=== PATIENT | male | born 2000 | race African-American/Black ===

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

== ENCOUNTER 2020-02-26 12:24 | Emergency (ER) | payer BC ==
[~2020-02-26] VITALS: Ht 182.9 cm; Wt 227.2 kg
[~2020-02-26 12:24] MED LIST changes: +ASPI325T8 PO; +OXYC1TAB15 PO; +POLY17PO28 PO
[2020-02-26] MEDS ORDERED: ONDANSETRON PF 4 MG/2 ML VIAL. IV ONE (13:45)
[2020-02-26] MEDS ORDERED: IV NORMAL SALINE 1000ML BAG 1,000 ML IV ONE (13:45)
[2020-02-26] MEDS ORDERED: fentaNYL PF VIAL 100 MCG/2 ML VIAL IV ONE (13:45)
[2020-02-26 13:48] LABS: BASO # 0.1 x10^3/uL (0.0-0.2); BASO % 1 % (0-3); EOS % 0 % (0-3); HEMATOCRIT 40.2 % (39.0-53.0); HEMOGLOBIN 13.3 g/dL (13.0-17.5); LYMPH # 0.9 x10^3/uL (1.0-4.8); LYMPH % 8 % (24-48); MEAN CORPUSCULAR HEMOGLOBIN 28 pg (25-35); MEAN CORPUSCULAR HGB CONC 33 g/dL (31-37); MEAN CORPUSCULAR VOLUME 85 fL (79-100); MONO # 0.5 x10^3/uL (0.0-1.1); MONO % 4 % (0-9); NEUT # 9.7 x10^3/uL (1.8-7.7); NEUT % 87 % (31-73); PLATELET COUNT 242 x10^3/uL (140-400); RED BLOOD COUNT 4.75 x10^6/uL (4.30-5.70); RED CELL DISTRIBUTION WIDTH 14.2 % (11.5-14.5); WHITE BLOOD COUNT 11.2 x10^3/uL (4.0-11.0)
[2020-02-26 13:49] LABS: BILIRUBIN,URINE NEGATIVE (NEG); CLARITY,URINE CLOUDY; COLOR,URINE AMBER; NITRITE,URINE NEGATIVE (NEG); PROTEIN,URINE 100 mg/dL (NEG-TRACE)
[2020-02-26 14:02] LABS: CALCIUM 9.3 mg/dL (8.5-10.1); CREATININE 1.1 mg/dL (0.7-1.3); GFR 86.2; POTASSIUM 4.3 mmol/L (3.5-5.1)
[2020-02-26 14:08] LABS: ALBUMIN 3.8 g/dL (3.4-5.0); ALBUMIN/GLOBULIN RATIO 1.1 (1.0-1.7); TOTAL BILIRUBIN 0.3 mg/dL (0.2-1.0); TOTAL PROTEIN 7.2 g/dL (6.4-8.2)
[2020-02-26] MEDS ORDERED: IOHEXOL 300 MG/ML 100ML VIAL. IV ONE (14:15)
[2020-02-26 14:23] LABS: BACTERIA,URINE FEW /HPF (0-FEW); RBC,URINE TNTC /HPF (0-2); WBC,URINE OCC /HPF (0-4)
--- NOTE | 2020-02-26 15:05 | RAD ---
INDICATION: Reason: RLQ abd pain, n/v x1 week / Spl. Instructions: OMNI 300 INJ 75 MLS / History: . COMPARISON: None. TECHNIQUE: Axial CT images obtained through the abdomen and pelvis with contrast. One or more of the following individualized dose reduction techniques were utilized for this examination: 1. Automated exposure control; 2. Adjustment of the mA and/or kV according to patient size; 3. Use of iterative reconstruction technique. FINDINGS: Abdominal aorta is not aneurysmal. There are some enlarged lymph nodes within the bilateral groin. For example on the right measuring up to about 15 mm short axis. No intrahepatic bile duct dilation. Gallbladder is partially contracted. No peripancreatic fluid collection. Spleen is enlarged. Questionable mild haziness to the fat adjacent to the pancreas. No left-sided hydronephrosis. Urinary bladder is not dilated. Mild right-sided hydronephrosis 2 mm high density structure is suspected at the right mid ureter. There is some artifact that limits evaluation. No periappendiceal inflammatory changes. No dilated loops of bowel to suggest obstruction. Degenerative changes the spine which are more than typically seen for the patient's age. IMPRESSION: * No evidence of appendicitis or bowel obstruction. * There is some mild right-sided hydronephrosis and perinephric edema. There is a subtle 2 mm high density structure within the right mid ureter which could be from a small stone or high density debris. * Splenomegaly. * Mild indistinctness adjacent to the pancreas. This could be artifactual in nature but would correlate with symptoms and lab markers to ensure that there is no superimposed mild pancreatitis. * Lymphadenopathy in the bilateral groin of unknown etiology. Electronically signed by: Elie Winchester MD (02/26/2020 3:02 PM) [id number]
[2020-02-26] MEDS ORDERED: TAMS0.4C97 PO (16:16)
[2020-02-26] MEDS ORDERED: ONDA-84 PO (16:16)
[2020-02-26] MEDS ORDERED: HYDR-2761 PO (16:16)
--- NOTE | 2020-02-26 16:16 | ED.ADGEN ---
Past Medical History Past Medical History: Other Additional Past Medical Histor: Morbid Obesity Past Surgical History: Tonsillectomy, Other Additional Past Surgical Histo: Right ankle Smoking Status: Never Smoker Alcohol Use: Rarely Drug Use: None General Adult EDM: Chief Complaint: ABDOMINAL PAIN HPI: HPI: Patient is a 19 year old [f__sex] who presents with [] Review of Systems: Review of Systems: Constitutional: Denies fever or chills. [] Eyes: Denies change in visual acuity. [] HENT: Denies nasal congestion or sore throat. [] Respiratory: Denies cough or shortness of breath. [] Cardiovascular: Denies chest pain or edema. [] GI: Denies abdominal pain, nausea, vomiting, bloody stools or diarrhea. [] : Denies dysuria. [] Musculoskeletal: Denies back pain or joint pain. [] Integument: Denies rash. [] Neurologic: Denies headache, focal weakness or sensory changes. [] Endocrine: Denies polyuria or polydipsia. [] Lymphatic: Denies swollen glands. [] Psychiatric: Denies depression or anxiety. [] Current Medications: Current Medications Medications (Trade) Dose Ordered Sig/Senia Start Time Stop Time Status Last Admin Dose Admin Fentanyl Citrate (Fentanyl 2ml Vial) 50 mcg 1X ONCE 02/26/20 13:45 02/26/20 13:48 DC Iohexol (Omnipaque 300 Mg/ml) 75 ml 1X ONCE 02/26/20 14:15 02/26/20 14:17 DC 02/26/20 14:37 75 ML Ondansetron HCl (Zofran) 4 mg 1X ONCE 02/26/20 13:45 02/26/20 13:48 DC Sodium Chloride 1,000 ml @ 1,000 mls/hr 1X ONCE 02/26/20 13:45 02/26/20 14:44 DC 02/26/20 14:54 1,000 MLS/HR Allergies: Allergies: Allergies Coded Allergies Type Severity Reaction Last Updated Verified No Known Drug Allergies 09/12/19 No Physical Exam: PE: Constitutional: Well developed, well nourished, no acute distress, non-toxic appearance. [] HENT: Normocephalic, atraumatic, bilateral external ears normal, oropharynx moist, no oral exudates, nose normal. [] Eyes: PERRLA, EOMI, conjunctiva normal, no discharge. [] Neck: Normal range of motion, no tenderness, supple, no stridor. [] Cardiovascular:Heart rate regular rhythm, no murmur [] Lungs & Thorax: Bilateral breath sounds clear to auscultation [] Abdomen: Bowel sounds normal, soft, no tenderness, no masses, no pulsatile masses. [] Skin: Warm, dry, no erythema, no rash. [] Back: No tenderness, no CVA tenderness. [] Extremities: No tenderness, no cyanosis, no clubbing, ROM intact, no edema. [] Neurologic: Alert and oriented X 3, normal motor function, normal sensory function, no focal deficits noted. [] Psychologic: Affect normal, judgement normal, mood normal. [] Current Patient Data: Labs: Laboratory Tests Test 02/26/20 13:14 02/26/20 13:30 Urine Collection Type Unknown Urine Color Mari Urine Clarity Cloudy Urine pH 6.0 (<5.0-8.0) Urine Specific [place] 1.025 (1.000-1.030) Urine Protein 100 mg/dL (NEG-TRACE) Urine Glucose (UA) Negative mg/dL (NEG) Urine Ketones (Stick) Negative mg/dL (NEG) Urine Blood Large (NEG) Urine Nitrite Negative (NEG) Urine Bilirubin Negative (NEG) Urine Urobilinogen Dipstick 1.0 mg/dL (0.2 mg/dL) Urine Leukocyte Esterase Trace (NEG) Urine RBC Tntc /HPF (0-2) Urine WBC Occ /HPF (0-4) Urine Bacteria Few /HPF (0-FEW) Urine Mucus Slight /LPF White Blood Count 11.2 x10^3/uL (4.0-11.0) H Red Blood Count 4.75 x10^6/uL (4.30-5.70) Hemoglobin 13.3 g/dL (13.0-17.5) Hematocrit 40.2 % (39.0-53.0) Mean Corpuscular Volume 85 fL (79-100) Mean Corpuscular Hemoglobin 28 pg (25-35) Mean Corpuscular Hemoglobin Concent 33 g/dL (31-37) Red Cell Distribution Width 14.2 % (11.5-14.5) Platelet Count 242 x10^3/uL (140-400) Neutrophils (%) (Auto) 87 % (31-73) H Lymphocytes (%) (Auto) 8 % (24-48) L Monocytes (%) (Auto) 4 % (0-9) Eosinophils (%) (Auto) 0 % (0-3) Basophils (%) (Auto) 1 % (0-3) Neutrophils # (Auto) 9.7 x10^3/uL (1.8-7.7) H Lymphocytes # (Auto) 0.9 x10^3/uL (1.0-4.8) L Monocytes # (Auto) 0.5 x10^3/uL (0.0-1.1) Eosinophils # (Auto) 0.0 x10^3/uL (0.0-0.7) Basophils # (Auto) 0.1 x10^3/uL (0.0-0.2) Platelet Estimate Pending Sodium Level 140 mmol/L (136-145) Potassium Level 4.3 mmol/L (3.5-5.1) Chloride Level 104 mmol/L (98-107) Carbon Dioxide Level 25 mmol/L (21-32) Anion Gap 11 (6-14) Blood Urea Nitrogen 11 mg/dL (8-26) Creatinine 1.1 mg/dL (0.7-1.3) Estimated GFR (Cockcroft-Gault) 86.2 BUN/Creatinine Ratio 10 (6-20) Glucose Level 137 mg/dL (70-99) H Calcium Level 9.3 mg/dL (8.5-10.1) Magnesium Level 2.0 mg/dL (1.8-2.4) Total Bilirubin 0.3 mg/dL (0.2-1.0) Aspartate Amino Transferase (AST) 22 U/L (15-37) Alanine Aminotransferase (ALT) 44 U/L (16-63) Alkaline Phosphatase 90 U/L (46-116) Total Protein 7.2 g/dL (6.4-8.2) Albumin 3.8 g/dL (3.4-5.0) Albumin/Globulin Ratio 1.1 (1.0-1.7) Lipase 40 U/L (73-393) L Laboratory Tests 02/26/20 13:30 Laboratory Tests 02/26/20 13:30 Vital Signs: Vital Signs Date Time Temp Pulse Resp B/P (MAP) Pulse Ox O2 Delivery O2 Flow Rate FiO2 02/26/20 13:04 97.8 60 16 165/86 (112) 97 Room Air 97.8 EKG: EKG: [] Heart Score: Risk Factors: Risk Factors: DM, Current or recent (<one month) smoker, HTN, HLP, family history of CAD, obesity. Risk Scores: Score 0 - 3: 2.5% MACE over next 6 weeks - Discharge Home Score 4 - 6: 20.3% MACE over next 6 weeks - Admit for Clinical Observation Score 7 - 10: 72.7% MACE over next 6 weeks - Early Invasive Strategies Radiology/Procedures: Radiology/Procedures: [] Course & Med Decision Making: Course & Med Decision Making Pertinent Labs and Imaging studies reviewed. (See chart for details) [] Dragon Disclaimer: Dragon Disclaimer: This electronic medical record was generated, in whole or in part, using a voice recognition dictation system. Departure Departure Impression: Primary Impression: Kidney stone on right side Disposition: 01 DC HOME SELF CARE/HOMELESS Condition: STABLE Referrals: NO PCP (PCP) Patient Instructions: Diet for Kidney Stones, Kidney Stones, [id number] Additional Instructions: Fill the prescriptions and use them as directed. Use the provided strainer to strain all your urine. Follow-up with your primary care doctor next week, recommend follow-up with a urologist for further evaluation and treatment of kidney stones. Unfortunately we do not have urology services at [facility]. Return to the ER if your symptoms worsen or fever develops. Scripts Hydrocodone Bit/Acetaminophen (HYDROCODONE-APAP 5-325 ) 1 Tab Tablet 1 TAB PO PRN Q6HRS PRN for PAIN for 3 Days, #10 TAB 0 Refills Prov: YESI WATSON POWER LINE INSTALLER 02/26/20 Ondansetron Hcl (ONDANSETRON HCL) 4 Mg Tablet 1 TAB PO PRN Q6HRS PRN for NAUSEA/VOMITING for 3 Days, #10 TAB 0 Refills Prov: YESI WATSON POWER LINE INSTALLER 02/26/20 Tamsulosin Hcl (FLOMAX) 0.4 Mg Cap.er.24h 1 CAP PO DAILY for 14 Days, #14 CAP 0 Refills Prov: YESI WATSON POWER LINE INSTALLER 02/26/20 YESI WATSON POWER LINE INSTALLER Feb 26, 2020 16:16
[2020-02-26 16:29] VITALS: BP 124/58
[2020-02-26 16:53] LABS: % LYMPHS 10 % (24-48); % MONOS 3 % (0-10); % SEGS 87 % (35-66); PLT ESTIMATE ADEQUATE (ADEQUATE); TOXIC VACUOLATION SLIGHT
== END 2020-02-26 17:10 | disposition home or self-care (01) ==
LOC: ER 12:24
DX: N20.0 Calculus of kidney (principal); R10.31 Right lower quadrant pain; E66.01 Morbid (severe) obesity due to excess calories; Z68.44 Body mass index [BMI] 60.0-69.9, adult; Z90.89 Acquired absence of other organs; Z98.890 Other specified postprocedural states
CPT/HCPCS: 36415; 74177; 80053; 81001; 83690; 83735; 85007; 85025; 87086; 96361; 96374; 96375; 99285; J2405; J3010; J7030; Q9967; 87077

== ENCOUNTER → 2020-04-05 | Outpatient (CLI) | payer BC ==
[~2020-04-05] MED LIST changes: +HYDR-2761 PO; +ONDA-84 PO; +TAMS0.4C97 PO
== END ==
LOC: LAB 10:40
PROVIDERS: ATTEND Orthopaedic Surgery
DX: Z01.812 Encounter for preprocedural laboratory examination (principal); Z20.828 Contact with and (suspected) exposure to other viral communicable diseases
CPT/HCPCS: U0003

== ENCOUNTER 2020-04-08 09:06 | Day surgery (SDC) | payer BC ==
[~2020-04-08] VITALS: Ht 175.3 cm; Wt 225.0 kg
[~2020-04-08 09:06] MED LIST changes: +BUPIVACAINE-EPI 0.25%-1:200000 MPF 30 ML VIAL. INJ ONE; +IV RINGERS,LACTATED 1000ML 1,000 ML IV SCH; +LIDOCAINE 1% PF 2 ML VIAL. ID PRN; +ONDANSETRON PF 4 MG/2 ML VIAL. IV PRN; +PROCHLORPERAZINE 10 MG/2 ML VIAL. IV PRN; +ceFAZolin SODIUM 3 GM in IV DEXTROSE 5% 100ML 100 ML IV PRN; +fentaNYL PF VIAL 100 MCG/2 ML VIAL IV PRN
[2020-04-08] MEDS ORDERED: LIDOCAINE 2% PF 5 ML VIAL. ONE (09:35)
[2020-04-08] MEDS ORDERED: ROCURONIUM 50 MG/5 ML VIAL. ONE (09:35)
[2020-04-08] MEDS ORDERED: PROPOFOL 10 MG/ML (20ML) VIAL. IV ONE (09:35)
[2020-04-08] MEDS ORDERED: ONDANSETRON PF 4 MG/2 ML VIAL. ONE (09:35)
[2020-04-08] MEDS ORDERED: SUCCINYLCHOLINE 200 MG/10 ML VIAL. ONE (09:35)
[2020-04-08] MEDS ORDERED: DEXAMETHASONE SOD PHOS 4 MG/ML VIAL ONE (09:35)
[2020-04-08] MEDS ORDERED: INSULIN LISPRO 100 UNIT/ML 3ML VIAL for OP,RR ONLY. SQ PRN (09:45)
[2020-04-08] MEDS ORDERED: MIDAZOLAM HCL/PF 2 MG/2 ML VIAL. ONE (10:20)
[2020-04-08] MEDS ORDERED: fentaNYL PF VIAL 100 MCG/2 ML VIAL ONE (11:27)
[2020-04-08] MEDS ORDERED: SEVOFLURANE 31 TO 60 MINUTES. IH ONE (11:45)
[2020-04-08] MEDS ORDERED: FAMOTIDINE 20 MG/2 ML VIAL ONE (11:45)
[2020-04-08] MEDS ORDERED: KETOROLAC 30 MG/ML VIAL. ONE (12:07)
[2020-04-08] MEDS ORDERED: SEVOFLURANE 61 TO 120 MINUTES. IH ONE (12:32)
[2020-04-08] MEDS ORDERED: MORPHINE SULFATE 2 MG/ML VIAL. ONE (13:01)
[2020-04-08] MEDS: MORPHINE SULFATE 2 MG/ML VIAL. IV PRN ×2 (13:05→13:15)
--- NOTE | 2020-04-08 13:05 | PDOC1 ---
History and Physical Date of Admission Date of Admission DATE: 04/08/20 TIME: 13:02 Identification/Chief Complaint Chief Complaint Painful right ankle hardware with mechanical complications Source Source: Chart review, Patient History of Present Illness History of Present Illness This 19-year-old man had an ankle fracture with syndesmosis repair several months ago. The medial malleolus fracture was repaired with K wires. It is time for the syndesmosis screws to be removed. These will cause mechanical complications and ankle problems if they are not removed and could break if they are not removed soon. The medial malleolus appears healed but the K wires are painful. I recommended removal of the syndesmosis screws and the K wires but re lieve the plate intact to help prevent refracture of the lateral malleolus. I spoke to the patient and his mother about the risks benefits and alternatives. Significant risk of refracture especially due to the patient's weight, and some risk of blood clots or infection, also with increased risk due to his weight. They stated understanding of the risks benefits and alternatives and desired to proceed. Past Surgical History Past Surgical History: Tonsillectomy Family History Family History: Cancer, Diabetes Family History: Other Current Medications Current Medications Current Medications Bupivacaine HCl/ Epinephrine Bitart (Sensorcaine-Epi 0.25%-1:513808 Mpf) 30 ml 1X ONCE INJ Last administered on 04/08/20at 11:42; Start 04/08/20 at 08:00; Stop 04/08/20 at 08:01; Status DC Ondansetron HCl (Zofran) 4 mg PRN Q6HRS PRN IV NAUSEA/VOMITING; Start 04/08/20 at 07:00; Stop 04/09/20 at 06:59 Fentanyl Citrate (Fentanyl 2ml Vial) 25 mcg PRN Q5MIN PRN IV MILD PAIN 1-3; Start 04/08/20 at 07:00; Stop 04/09/20 at 06:59 Fentanyl Citrate (Fentanyl 2ml Vial) 50 mcg PRN Q5MIN PRN IV MODERATE TO SEVERE PAIN; Start 04/08/20 at 07:00; Stop 04/09/20 at 06:59 Morphine Sulfate (Morphine Sulfate) 1 mg PRN Q10MIN PRN IV SEVERE PAIN 7-10; Start 04/08/20 at 07:00; Stop 04/09/20 at 06:59 Ringer's Solution 1,000 ml @ 30 mls/hr Q24H IV Last administered on 04/08/20at 10:08; Start 04/08/20 at 07:00; Stop 04/08/20 at 18:59 Lidocaine HCl (Xylocaine-Mpf 1% 2ml Vial) 2 ml PRN 1X PRN ID PRIOR TO IV START; Start 04/08/20 at 07:00; Stop 04/09/20 at 06:59 Hydromorphone HCl (Dilaudid) 0.5 mg PRN Q10MIN PRN IV SEV PAIN, Second choice; Start 04/08/20 at 07:00; Stop 04/09/20 at 06:59 Prochlorperazine Edisylate (Compazine) 5 mg PACU PRN PRN IV NAUSEA, MRX1; Sta rt 04/08/20 at 07:00; Stop 04/09/20 at 06:59 Cefazolin Sodium 3 gm/Dextrose 100 ml @ 200 mls/hr 1X PREOP PRN IV PRIOR TO PROCEDURE Last administered on 04/08/20at 11:10; Start 04/08/20 at 06:00; Stop 04/08/20 at 15:00 Propofol (Diprivan) 200 mg STK-MED ONCE IV ; Start 04/08/20 at 09:35; Stop 04/08/20 at 09:36; Status DC Dexamethasone Sodium Phosphate (Decadron) 4 mg STK-MED ONCE .ROUTE ; Start 04/08/20 at 09:35; Stop 04/08/20 at 09:36; Status DC Lidocaine HCl (Lidocaine Pf 2% Vial) 5 ml STK-MED ONCE .ROUTE ; Start 04/08/20 at 09:35; Stop 04/08/20 at 09:36; Status DC Ondansetron HCl (Zofran) 4 mg STK-MED ONCE .ROUTE ; Start 04/08/20 at 09:35; Stop 04/08/20 at 09:36; Status DC Succinylcholine Chloride (Anectine) 200 mg STK-MED ONCE .ROUTE ; Start 04/08/20 at 09:35; Stop 04/08/20 at 09:36; Status DC Rocuronium Staley (Zemuron) 50 mg STK-MED ONCE .ROUTE ; Start 04/08/20 at 09:35; Stop 04/08/20 at 09:36; Status DC Insulin Human Lispro (HumaLOG VIAL for OP,RR ONLY) 0-10 units PRN Q1HR PRN SQ PER PROTOCOL; Start 04/08/20 at 09:45; Stop 04/09/20 at 09:44 Midazolam HCl (Versed) 2 mg STK-MED ONCE .ROUTE ; Start 04/08/20 at 10:20; Stop 04/08/20 at 10:21; Status DC Fentanyl Citrate (Fentanyl 2ml Vial) 100 mcg STK-MED ONCE .ROUTE ; Start 03/22 12/09 at 11:27; Stop 04/08/20 at 11:27; Status DC Famotidine (Pepcid Vial) 20 mg STK-MED ONCE .ROUTE ; Start 04/08/20 at 11:45; Stop 04/08/20 at 11:46; Status DC Sevoflurane (Ultane) 30 ml STK-MED ONCE IH ; Start 04/08/20 at 11:45; Stop 04/08/20 at 11:46; Status DC Ketorolac Tromethamine (Toradol 30mg Vial) 30 mg STK-MED ONCE .ROUTE ; Start 04/08/20 at 12:07; Stop 04/08/20 at 12:07; Status DC Sevoflurane (Ultane) 60 ml STK-MED ONCE IH ; Start 04/08/20 at 12:32; Stop 04/08/20 at 12:32; Status DC Active Scripts Active Reported No Known Medications Prior To Admisstion (Info) Each 1 Each N/A Allergies Allergies: Coded Allergies: No Known Drug Allergies (Unverified , 04/08/20) Physical Exam General: Alert, Cooperative HEENT: Atraumatic Heart: RRR Abdomen: Soft Extremities: Other (Well-healed ankle incisions. No evidence of infection. Tenderness over the medial malleolus where the s K wires are located. Slightly decreased ankle range of motion is consistent with rigid syndesmosis fixation.) Skin: No breakdown, No significant lesion, Other (Well-healed surgical scars.) Neuro: Sensation intact Psych/Mental Status: Mood NL Vitals Vitals Vital Signs Date Time Temp Pulse Resp B/P (MAP) Pulse Ox O2 Delivery O2 Flow Rate FiO2 04/08/20 09:50 97.6 87 18 139/85 96 Room Air 97.6 Labs Labs Laboratory Tests Test 04/08/20 10:01 Glucose (Fingerstick) 97 mg/dL (70-99) Laboratory Tests Test 04/08/20 10:01 Glucose (Fingerstick) 97 mg/dL (70-99) Images Images IMAGING REPORT Signed PATIENT: SRUTHI JOHNSTON MACCOUNT: [id number] : 2000 LOCATION: [facility] AGE: 19 SEX: M EXAM STATUS: PRE CLI ORD. PHYSICIAN: LAWANDA WEBSTER MD REASON: FU SURG RIGHT ANKLE PROCEDURE: ANKLE RIGHT 3V ANKLE RIGHT 3V 01/11/2020 12:00 AM INDICATION: Right ankle surgery COMPARISON: 12/14/2019 TECHNIQUE: 3 views of the right ankle are provided. FINDINGS/ IMPRESSION: 1. Ankle soft tissue swelling appears similar to prior examination. No subcutaneous gas or osseous erosion. 2. Lateral plate and screw fixation of the tibia and fibula noted. Hardware is intact. 3 K wires are identified within the medial malleolus. Tibial plafond and talar dome are intact. Ankle mortise is congruent. Electronically signed by: Sofia Oglesby MD (01/11/2020 3:23 PM) [id number] DICTATED and SIGNED BY: SOFIA OGLESBY MD DATE: 01/11/20 1523 VTE Prophylaxis Ordered VTE Prophylaxis Devices: Yes VTE Pharmacological Prophylaxi: Yes Assessment/Plan Assessment/Plan Painful ankle hardware. Mechanical complications retained hardware. He and I and his mother have discussed hardware removal and the risks benefits and alternatives. He is here today for elective surgery. Justifications for Admission Other Justification LAWANDA WEBSTER MD Apr 08, 2020 13:05
--- NOTE | 2020-04-08 13:07 | PDOC4 ---
Operative Note Operative Note Date of Procedure: April 08, 2020 Pre-Op Diagnosis: Pain due to internal orthopedic prosthetic devices, implants and grafts, initial encounter T84.84XA Other mechanical complication of internal fixation device of bone of right lower leg, initial encounter T84.196A Post-Op Diagnosis: same Procedure: CPT 21862 removal of implant deep (e.g., buried wire, pin, screw, nail, frida, or plate) right ankle Surgeon: Lawanda Cevallos MD Carton Machine Operator: Rosy JULIEN Anesthesia: General EBL: 50 mL Specimens Obtained: none Complications: none Drains: none Tourniquet: 56 minutes at 300 mm Hg Indications for Procedure: The patient is a 19 year old with mechanical complications of retained hardware of the right ankle. The patient and I discussed the risks, benefits and alternatives of surgery. I recommended hardware removal but I discussed the potential risks of refracture, infection, bleeding, blood clots, neurovascular injury, or other potential surgical or anesthetic complications. All of their questions were answered and they desired to proceed with surgery. Procedure in Detail: The patient was identified in the preoperative holding area. The correct right ankle was marked by me. The patient was taken to the operating room where general anesthetic was used. The patient was positioned on the operating table. Preoperative antibiotics were given intravenously. A timeout procedure was performed. A padded tourniquet was applied to the right calf. The limb was prepared in sterile fashion with chlorhexidine scrub, dry, and then ChloraPrep. Sterile drapes were applied. An incision was made with a scalpel, utilizing a prior scar, and over the hardware medially. Sharp dissection was used. Bovie electrocautery was used for dissection and hemostasis. Deep retractors were placed due to the abundant soft tissues. The K wires were located with use of the small C arm image intensifier and removed with a needle transfer driver. The medial malleolus fracture appears well- healed. Copious saline irrigation was used. The medial incision was closed with #1 Vicryl, 2-0 Vicryl, and pati. Bovie electrocautery was used for hemostasis. Local anesthetic with epinephrine was injected into the skin edges. The small C arm image intensifier was used to localize the syndesmosis screws. A portion of the lateral incision was reopened sharply. Bovie electrocautery was used for hemostasis. Deep retractors were placed. The screw heads were identified and the screws were removed without difficulty. Neither screw was broken. Copious saline irrigation was used. The incision was closed in layers with #1 Vicryl, #2-0 Vicryl and pati. My clinical physician assistant did the subcutaneous and skin closure. Local anesthetic with epinephrine was injected into the skin edges. Sterile dressing was applied. Needle and sponge counts were correct. There were no apparent complications. The tourniquet was released. The patient returned to the recovery in stable condition. LAWANDA CEVALLOS MD Apr 08, 2020 13:07
[2020-04-08] MEDS ORDERED: PROCHLORPERAZINE 10 MG/2 ML VIAL. ONE (13:17)
[2020-04-08] MEDS ORDERED: HYDROmorphone 2 MG/ML VIAL ONE (13:29)
[2020-04-08] MEDS: HYDROmorphone 2 MG/ML VIAL IV PRN ×4 (13:32→14:05)
[2020-04-08] MEDS ORDERED: OXYC1TAB15 PO (14:02)
[2020-04-08 14:15] VITALS: BP 131/68
[2020-04-08] MEDS ORDERED: oxyCODONE/APAP 5/325 1 TAB TABLET PO ONE (14:15)
== END 2020-04-08 15:00 | disposition home or self-care (01) ==
LOC: SURG 09:06
PROVIDERS: ATTEND Orthopaedic Surgery
DX: T84.196A Other mechanical complication of internal fixation device of bone of right lower leg, initial encounter (principal); T84.84XA Pain due to internal orthopedic prosthetic devices, implants and grafts, initial encounter; E66.01 Morbid (severe) obesity due to excess calories; E03.0 Congenital hypothyroidism with diffuse goiter; Z90.89 Acquired absence of other organs; Z87.442 Personal history of urinary calculi; Z98.890 Other specified postprocedural states; Z83.3 Family history of diabetes mellitus; Z68.45 Body mass index [BMI] 70 or greater, adult; Z91.81 History of falling; Y82.8 Other medical devices associated with adverse incidents; Y92.89 Other specified places as the place of occurrence of the external cause
CPT/HCPCS: 20680; 82962; A4461; J0780; J1100; J1170; J1885; J2250; J2270; J2405; J2704; J3010; J3490; J7120; J0330

== ENCOUNTER → 2020-08-22 | Outpatient (CLI) | payer BC ==
[~2020-08-22] MED LIST changes: -BUPIVACAINE-EPI 0.25%-1:200000 MPF 30 ML VIAL. INJ ONE; -IV RINGERS,LACTATED 1000ML 1,000 ML IV SCH; -LIDOCAINE 1% PF 2 ML VIAL. ID PRN; -ONDANSETRON PF 4 MG/2 ML VIAL. IV PRN; -POLY17PO28 PO; +POLY17PO52 PO; -PROCHLORPERAZINE 10 MG/2 ML VIAL. IV PRN; -ceFAZolin SODIUM 3 GM in IV DEXTROSE 5% 100ML 100 ML IV PRN; -fentaNYL PF VIAL 100 MCG/2 ML VIAL IV PRN
--- NOTE | 2020-08-22 15:18 | RAD ---
EXAM: CT left wrist without IV contrast DATE: 08/22/2020 10:54 AM COMPARISON: No prior INDICATION: Reason: LEFT WRIST PAIN / Spl. Instructions: / History: TECHNIQUE: CT of the left wrist was performed without IV contrast. Axial, coronal and sagittal reform atted images were generated. PQRS compliance statement - One or more of the following individualized dose reduction techniques wer e utilized for this study: 1. Automated exposure control 2. Adjustment of the mA and/or kV according to patient size 3. Use of iterative reconstruction technique FINDINGS: There is a comminuted intra-articular fracture of the distal radius with articular surface gap measur ing 5 mm at the volar lip. Ulnar minus variance. There is ulnar translocation of the carpus. Visualized flexor and extensor tendons are intact. Radiocarpal and midcarpal joint effusion. IMPRESSION: 1. Comminuted intra-articular fracture of the distal radius with articular surface gap measuring 5 m m at the volar lip. 2. Ulnar minus variance. Electronically signed by: Ramone Dutton MD (08/22/2020 3:16 PM) [id number]
== END ==
LOC: CT 11:11
PROVIDERS: ATTEND Physician Assistant
DX: S52.591A Other fractures of lower end of right radius, initial encounter for closed fracture (principal); X58.XXXA Exposure to other specified factors, initial encounter; Y93.89 Activity, other specified; Y92.89 Other specified places as the place of occurrence of the external cause; Y99.8 Other external cause status
CPT/HCPCS: 73200